=== PATIENT | female | born 1975 | race Caucasian/White ===

== ENCOUNTER 2018-11-15 19:08 | Emergency (ER) | payer OTHER ==
[~2018-11-15] VITALS: Ht 170.2 cm; Wt 128.8 kg
[2018-11-15 19:15] VITALS: Ht 170.2 cm; Wt 128.8 kg
[2018-11-15 20:04] LABS: microscopic required? YES; urine erythrocyte 1+ (NEGATIVE)
[2018-11-15 20:12] VITALS: BP 151/86
== END 2018-11-15 20:12 | disposition home or self-care (01) ==
LOC: ED 19:08
PROVIDERS: Emergency Medicine
DX: R30.0 Dysuria (principal); R03.0 Elevated blood-pressure reading, without diagnosis of hypertension; E11.9 Type 2 diabetes mellitus without complications
CPT/HCPCS: 82962

== ENCOUNTER 2018-12-08 07:32 | Emergency (ER) | payer OTHER ==
[~2018-12-08] VITALS: Ht 170.2 cm; Wt 129.3 kg
[2018-12-08 07:36] VITALS: Ht 170.2 cm; Wt 129.3 kg
[2018-12-08 08:18] LABS: BASOPHIL % 0.4 % (0-2); PLATELET COUNT 173 x10^3mcL (130-400)
[2018-12-08 08:29] LABS: CALCIUM 8.1 mg/dL (8.5-10.1); CARBON DIOXIDE 23.9 mmol/L (21-32); CHLORIDE SERUM 104 mmol/L (98-107); CREATININE SERUM 0.5 mg/dL (0.6-1.0); GFR1 > 60 mL/min; GLUCOSE SERUM 165 mg/dL (74-106); POTASSIUM SERUM 3.8 mmol/L (3.5-5.1); SODIUM SERUM 139 mmol/L (136-145)
[2018-12-08 08:40] LABS: ALKALINE PHOSPHATASE 78 U/L (46-116); ALT/SGPT 22 U/L (14-59); AMYLASE 36 U/L (25-115); AST/SGOT 16 U/L (15-37); BILIRUBIN TOTAL 0.3 mg/dL (0.20-1.00); CHOLESTEROL 154 mg/dL (<200); HDL CHOLESTEROL 39 mg/dL (40-60); LIPASE 125 IU/L (73-393); MAGNESIUM 1.6 mg/dL (1.8-2.4); T4(THYROXINE) 4.9 ug/dL (4.7-13.3); TOTAL PROTEIN, SERUM 7.2 g/dL (6.4-8.2)
[2018-12-08 09:41] LABS: microscopic required? YES; urine erythrocyte 3+ (NEGATIVE)
[2018-12-08 10:22] LABS: AMPHETAMINE QUAL UR NONE DETECTED (See below)
[2018-12-08 10:54] VITALS: BP 118/53
== END 2018-12-08 10:54 | disposition home or self-care (01) ==
LOC: ED 07:32
PROVIDERS: Emergency Medicine
DX: M19.042 Primary osteoarthritis, left hand (principal); M54.12 Radiculopathy, cervical region; E11.65 Type 2 diabetes mellitus with hyperglycemia; E66.01 Morbid (severe) obesity due to excess calories; Z68.41 Body mass index [BMI] 40.0-44.9, adult; Z90.89 Acquired absence of other organs
CPT/HCPCS: 36415; 82962; 83880

== ENCOUNTER 2019-04-11 14:43 | Emergency (ER) | payer OTHER ==
[~2019-04-11] VITALS: Ht 162.6 cm; Wt 125.2 kg
[2019-04-11 14:51] VITALS: Ht 162.6 cm; Wt 125.2 kg
[2019-04-11 16:05] VITALS: BP 150/84
== END 2019-04-11 17:02 | disposition home or self-care (01) ==
LOC: ED 14:43
DX: S80.01XA Contusion of right knee, initial encounter (principal); E11.9 Type 2 diabetes mellitus without complications; Z90.89 Acquired absence of other organs; Z98.890 Other specified postprocedural states; Y04.8XXA Assault by other bodily force, initial encounter; Y93.89 Activity, other specified; Y92.832 Beach as the place of occurrence of the external cause; Y99.8 Other external cause status
CPT/HCPCS: J1885

== ENCOUNTER 2020-12-21 19:32 | Emergency (ER) | payer OTHER ==
[~2020-12-21] VITALS: Ht 170.2 cm; Wt 123.8 kg
[2020-12-21 19:56] VITALS: Ht 170.2 cm; Wt 123.8 kg
[2020-12-21] MEDS ORDERED: IBU600 M2 PO (20:55)
[2020-12-21] MEDS ORDERED: AMO500 PO (20:55)
[2020-12-21 21:04] VITALS: BP 125/74
== END 2020-12-21 21:04 | disposition home or self-care (01) ==
LOC: ED 19:32
DX: K02.9 Dental caries, unspecified (principal); R51.9 Headache, unspecified; E11.9 Type 2 diabetes mellitus without complications; Z98.890 Other specified postprocedural states; Z90.89 Acquired absence of other organs
CPT/HCPCS: J1885